=== PATIENT | female | born 1975 | race Caucasian/White ===

== ENCOUNTER 2019-06-03 10:14 | Day surgery (SDC) | payer MEDICARE, MEDICAID ==
[2019-05-31 09:52] VITALS: BMI 26.0
[2019-06-03] MEDS ORDERED: Midazolam HCl 2 mg/2 ml Vial ONE (11:32)
[2019-06-03] MEDS ORDERED: Fentanyl 100 MCG/2 ML VIAL ONE (11:32)
[2019-06-03] MEDS ORDERED: Labetalol HCl 100 MG/20 ML VIAL ONE (13:27)
[2019-06-03] MEDS ORDERED: PROPOFOL 200 MG/20 ML VIAL ONE (13:56)
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
== END 2019-06-03 15:10 | disposition home or self-care (01) ==
LOC: SDC/OP 10:14
PROVIDERS: ATTEND Registered Nurse
DX: M51.24 Other intervertebral disc displacement, thoracic region (principal); M47.814 Spondylosis without myelopathy or radiculopathy, thoracic region; M47.812 Spondylosis without myelopathy or radiculopathy, cervical region; M47.816 Spondylosis without myelopathy or radiculopathy, lumbar region; M50.222 Other cervical disc displacement at C5-C6 level; J39.2 Other diseases of pharynx; M79.605 Pain in left leg; M79.604 Pain in right leg; R53.1 Weakness; Z88.0 Allergy status to penicillin; Z88.5 Allergy status to narcotic agent
CPT/HCPCS: 70551; 72141; 72146; 72148; J2250; J3010

== ENCOUNTER 2019-07-08 15:17 | Outpatient (CLI) | payer MEDICARE, MEDICAID ==
--- NOTE | 2019-07-08 15:46 | ULT ---
EXAM: Right lower extremity venous Doppler US HISTORY: Right lower extremity edema and pain FINDINGS: Grayscale, color-flow, Doppler evaluation, spectral analysis of the right lower extremity venous stru ctures is performed with 2-D imaging. The right common femoral, superficial femoral, popliteal, posterior tibial, proximal greater saphenous and profunda femoral veins are imaged. There is normal luminal compressibility, flow, and augmentation the visualized deep venous structures of the right lower extremity. IMPRESSION: No evidence of a deep vein thrombosis in the right lower extremity.
== END 2019-07-08 15:18 | disposition home or self-care (01) ==
LOC: BICULT 15:17
PROVIDERS: ATTEND Family Medicine
DX: M79.604 Pain in right leg (principal)